=== PATIENT | male | born 1965 | race Caucasian/White ===

== ENCOUNTER → 2017-12-26 06:53 | Outpatient (CLI) | payer BC, SELFPAY ==
[2017-12-26 08:33] LABS: Add Manual Diff / Slide Review NO; Basophils Percent Auto 0.8 % (0-2); Eosinophils Percent Auto 3.3 % (2-4); Hemoglobin 15.7 g/dL (13.5-17.5); Lymphocytes Percent Auto 29.2 % (25-40); Mean Corpuscular HGB Conc 33.4 % (30-36); Mean Corpuscular Hemoglobin 30.1 PG (26-34); Mean Corpuscular Volume 90.3 fL (80-100); Monocytes Percent Auto 7.5 % (3-14); Neutrophils Absolute Auto 5100 /uL (3000-5900); Neutrophils Percent Auto 59.2 % (50-75); Platelet Count 259 X10^3/uL (150-400); Red Blood Cell Count 5.21 X10^6/uL (4.5-5.9); Red Cell Distribution Width 14.7 % (11.6-14.8); White Blood Cell Count 8.5 X10^3/uL (4.5-11.0)
[2017-12-26 09:13] LABS: Alanine Aminotransferase 58 IU/L (21-72); Albumin 4.5 g/dL (3.5-5.0); Albumin Globulin Ratio 1.7 (1.0-2.8); Alkaline Phosphatase 66 U/L (38-126); Aspartate Aminotransferase 30 IU/L (17-59); Bilirubin Total 0.5 mg/dL (0.2-1.3); Blood Urea Nitrogen 18 mg/dL (9-20); Calcium 10.6 mg/dL (8.4-10.2); Carbon Dioxide 34 mmol/L (22-32); Chloride 99 mmol/L (98-107); Cholesterol 199 mg/dL (140-199); Estimated Glomerular Filt Rate > 60.0 mL/min (>60); Globulin 2.6 g/dL (1.7-4.1); Glucose 106 mg/dL (70-100); HDL Cholesterol 38 mg/dL (40-60); HEMOLYSIS < 15 (0-50); LDL Cholesterol Calculated 108 mg/dL (<100); Potassium 5.2 mmol/L (3.4-5.1); Sodium 144 mmol/L (137-145); Total Protein 7.1 g/dL (6.3-8.2); Triglycerides 266 mg/dL (35-150)
== END ==
PROVIDERS: PCP Family Medicine; Visit Provider Registered Nurse
DX: Z00.00 Encounter for general adult medical examination without abnormal findings (principal)
CPT/HCPCS: 36415; 80053; 80061; 85025

== ENCOUNTER → 2018-01-24 12:46 | Outpatient (CLI) | payer BC, SELFPAY ==
[2018-01-24 13:41] LABS: Hemoglobin A1C% w Est Avg Glu 6.1 % (4.0-6.0)
[2018-01-24 15:47] LABS: Alanine Aminotransferase 67 IU/L (21-72); Albumin 4.5 g/dL (3.5-5.0); Albumin Globulin Ratio 1.7 (1.0-2.8); Alkaline Phosphatase 83 U/L (38-126); Aspartate Aminotransferase 37 IU/L (17-59); BUN Creatinine Ratio 17.8 (6-22); Bilirubin Total 0.9 mg/dL (0.2-1.3); Blood Urea Nitrogen 16 mg/dL (9-20); Carbon Dioxide 28 mmol/L (22-32); Chloride 102 mmol/L (98-107); Estimated Glomerular Filt Rate > 60.0 mL/min (>60); Globulin 2.7 g/dL (1.7-4.1); Glucose 98 mg/dL (70-100); HEMOLYSIS 27 (0-50); Potassium 4.6 mmol/L (3.4-5.1); Sodium 143 mmol/L (137-145); Total Protein 7.2 g/dL (6.3-8.2)
== END ==
PROVIDERS: PCP Student in an Organized Health Care Education/Training Program; Visit Provider Registered Nurse
DX: I10 Essential (primary) hypertension (principal); E66.01 Morbid (severe) obesity due to excess calories; R73.9 Hyperglycemia, unspecified
CPT/HCPCS: 36415; 80053; 83036

== ENCOUNTER 2019-08-06 20:44 | Emergency (ER) | payer BC, SELFPAY ==
[2019-08-06] VITALS (14 sets, daily range): BP systolic 120–165; BP diastolic 69–93; PULSE 70–98; RESP 12–24; TEMP 37.5; O2SAT 86–99
--- NOTE | 2019-08-06 | DI.RAD.S_ITS ---
PROCEDURE: XR WRIST RT 2V INDICATIONS: POST REDUCTION TECHNIQUE: 2 views of the wrist were acquired. COMPARISON: [facility], CR, XR WRIST RT MIN 3V, 08/06/2019, 20:46. FINDINGS: Bones: Comminuted, intra-articular fracture involving the distal radius remains medially and volarly displaced. Soft tissues: No suspicious soft tissue calcifications. IMPRESSION: Displaced comminuted, intra-articular distal radius fracture. Dictated by: Hoda Huizar MD, PhD on 08/07/2019 at 8:38 Approved by: Hoda Huizar MD, PhD on 08/07/2019 at 8:39
--- NOTE | 2019-08-06 20:51 | DI.RAD.S_ITS ---
PROCEDURE: XR WRIST RT MIN 3V INDICATIONS: fall with pain and deformity of R wrist TECHNIQUE: 4 views of the wrist were acquired. COMPARISON: None. FINDINGS: Bones: Fracture of the distal radius with intra-articular extension with volar angulation. There is mild impaction. No suspicious bony lesions. Scaphoid view: Unremarkable. Soft tissues: No suspicious soft tissue calcifications. IMPRESSION: Distal radius fracture with intra-articular extension and volar angulation. Dictated by: José Miguel Clay M.D. on 08/06/2019 at 21:06 Approved by: José Miguel Clay M.D. on 08/06/2019 at 21:08
--- NOTE | 2019-08-06 20:51 | DI.RAD.S_ITS ---
PROCEDURE: XR ELBOW RT MIN 3V INDICATIONS: pain in elbow, obvious wrist deformity TECHNIQUE: 4 views of the elbow were acquired. COMPARISON: [facility], CR, XR WRIST RT MIN 3V, 08/06/2019, 20:46. FINDINGS: Bones: No fractures identified. No dislocations. No suspicious bony lesions. Soft tissues: No elbow joint effusion. No suspicious soft tissue calcifications. IMPRESSION: No acute osseous abnormality. Dictated by: José Miguel Clay M.D. on 08/06/2019 at 21:16 Approved by: José Miguel Clay M.D. on 08/06/2019 at 21:17
[2019-08-06] MEDS: propofoL 200 MG/20 ML VIAL 110 MG IV (21:30)
[2019-08-06] MEDS: HYDROCODONE/ACET 5/325 PREPACK 1 BOTTLE MISC (21:30)
[2019-08-06] MEDS: KETAMINE 500 MG/5 ML INJ 110 MG IV (21:31)
--- NOTE | 2019-08-06 22:20 | ED.UPPEXIN ---
HPI - Extremity Injury (Upper) General Chief Complaint: Extremity Injury, Upper Stated Complaint: Injured right wrist after fall Time Seen by Provider: 08/06/19 20:48 Source: patient Mode of arrival: Ambulatory Limitations: no limitations History of Present Illness HPI narrative: 54M nonsmoker with history of HTN and hyperlipidemia presents with chief complaint of R wrist injury suffered when falling from an electric skateboard at slow speed. He was wearing full protection and denies head, neck, or back pain. He suffered injury to his right wrist and an obvious deformity. Denies any elbow or shoulder pain. He denies numbness, tingling weakness. He is right-handed. MD complaint: injury to: right Related Data Previous Rx's Medication Instructions Recorded lisinopril 20 1 tab PO DAILY #30 tab 03/06/18 mg-hydrochlorothiazide 25 mg tablet atorvastatin 40 mg tablet 40 mg PO QDAY #90 tab 01/17/19 hydrocodone-acetaminophen 1 tab PO Q4-6H PRN #20 tab 08/06/19 Allergies Allergy/AdvReac Type Severity Reaction Status Date / Time simvastatin [SIMVASTATIN] Allergy Unknown MYALGIAS Unverified 03/06/18 10:15 venom-honey bee Allergy Unknown Unverified 03/06/18 10:15 [BEE VENOM (HONEY BEE)] Review of Systems Constitutional Constitutional: Denies chills, Denies fatigue, Denies fever(s), Denies frequent falls, Denies lethargy and Denies weakness Eyes Eyes: Denies change in vision, Denies eye discharge, Denies irritation and Denies loss of vision ENT Ears, Nose, Mouth, and Throat: Denies change in voice, Denies dizziness, Denies neck pain, Denies sore throat and Denies throat swelling Cardiovascular Cardiovascular: Denies chest pain, Denies irregular heart rhythm, Denies lightheadedness, Denies palpitations, Denies dyspnea, Denies dyspnea on exertion and Denies orthopnea Respiratory Respiratory: Denies cough, Denies dyspnea, Denies dyspnea on exertion and Denies wheezing Gastrointestinal Gastrointestinal: Denies abdominal pain, Denies change in bowel habits, Denies diarrhea, Denies nausea and Denies vomiting Genitourinary Genitourinary: Denies hematuria, Denies flank pain, Denies urinary incontinence and Denies urinary urgency Musculoskeletal Musculoskeletal: Denies back pain, Reports joint swelling, Reports limited range of motion, Denies muscle weakness, Denies neck pain, Denies numbness and Denies tingling Integumentary/Breasts Skin/Breast: Denies pruritus, Denies erythema, Denies rash and Denies wounds Neurologic Neurologic: Denies behavioral changes, Denies confusion, Denies dizziness, Denies frequent falls, Denies loss of vision, Denies numbness, Denies tingling and Denies weakness Psychiatric Psychiatric: Denies anxiety, Denies behavioral changes, Denies confusion, Denies depression, Denies homicidal ideation and Denies suicidal ideation Endocrine Endocrine: Denies fatigue, Denies flushing and Denies palpitations Hematologic/Lymphatic Hematologic/Lymphatic: Denies easy bruising Allergic/Immunologic Allergic/Immunologic: Denies urticaria, Denies throat swelling and Denies wheezing Patient History Medical History Chicken pox (Resolved) Diverticulitis (Chronic 2010) Hyperlipidemia (Chronic) Hypertension (Chronic 2015) Surgical History Anesthesia (Resolved) History of colonoscopy (Resolved 2010) History of umbilical hernia repair (Resolved) Family History Brother Age: 48 High cholesterol Grandfather Heart disease Mother Age: 70 Hypertension Brother No problems noted. Brother No problems noted. Father No problems noted. Grandmother COPD (chronic obstructive pulmonary disease) Grandfather No problems noted. Grandmother No problems noted. Sister No problems noted. Social History Smoking Status: Never smoker Smoking Status: Never smoker Exam Narrative Exam Narrative: GENERAL: [54] year old patient appears stated age. Well-nourished, well-developed patient, in mild distress. HEAD: Atraumatic. Normocephalic. EYES: Pupils equal round and reactive. Extraocular motions intact. No scleral icterus. No injection or drainage. ENT: Nose without bleeding, purulent drainage. Throat without erythema, tonsillar hypertrophy or exudate. Airway patent. NECK: Trachea midline. Non tender CARDIOVASCULAR: Regular rate and rhythm without murmurs, gallops, or rubs. RESPIRATORY: Clear to auscultation. Breath sounds equal bilaterally. No wheezes, rales, or rhonchi. GASTROINTESTINAL: Abdomen soft, non-tender, nondistended. EXTREMITIES: Obvious deformity to right wrist. Closed, isolated neurovascular intact. No tenderness to palpation of elbow or shoulder. No edema or joint tenderness. BACK: Nontender without deformity or crepitance. No flank tenderness. NEURO: AOx3. SKIN: No rash or erythema of visible areas Initial Vital Signs Initial Vital Signs: Vital Signs Temperature 99.5 F 08/06/19 20:51 Pulse Rate 97 H 08/06/19 20:51 Respiratory Rate 08/06/19 20:51 Blood Pressure 145/93 H 08/06/19 20:51 Pulse Oximetry 99 08/06/19 20:51 Procedures Orthopedic Fracture Reduction Fracture #1: Time Out Performed: Yes Side: right Fracture Reduction Location: radius Analgesia: procedural sedation Technique: direct manipulation and traction/counter-traction Post Reduction X-rays Demonstrate: acceptable reduction Post-reduction neuro exam: intact Post-reduction vascular exam: intact Splint Applied: Yes Patient Tolerated Procedure: Well Procedural Sedation Consent signed: Yes Time out performed: Yes Indication: fracture/dislocation reduction ASA Class: II Mallampati Airway Classification: Class II Preparation: cardiac technologist applied, pulse oximeter, capnometry used, supplemental O2 applied, suction/airway equipment at bedside and IV secured Ketamine: IV Ketamine dose (mg): 110 IV Propofol dose (mg): 30 ED Sedation Level: Moderate (Concious) Patient Tolerated Procedure: Well Complications: hypoxia Interventions: Airway repositioned Course Orders Ordered: ED Orders 08/06/19 20:51 XR elbow RT min 3V Stat XR wrist RT min 3V Stat Discontinued Medications Hydrocodone Bitart/Acetaminophen (Vicodin 5/325 Prepack) 1 bottle MISC SEEINSTR ONE Stop: 08/06/19 20:53 Last Admin: 08/06/19 21:30 Dose: 1 bottle Documented by: JOSE GUADALUPE Ketamine HCl (Ketalar) 110 mg 1 mg/kg (110 mg) IV NOW ONE Stop: 08/06/19 21:00 Last Admin: 08/06/19 21:31 Dose: 110 mg Documented by: JOSE GUADALUPE Propofol (Diprivan) 110 mg 1 mg/kg (110 mg) IV NOW ONE Stop: 08/06/19 20:59 Last Admin: 08/06/19 21:30 Dose: 30 mg Documented by: JOSE GUADALUPE Hooper Consultation #1: discussion with Dr. Ayala, in agreement with the plan to reduce, splint and follow up. Vital Signs Vital signs: Vital Signs - 8 hr 08/06/19 20:51 08/06/19 21:26 08/06/19 22:00 Temperature 99.5 F Pulse Rate 97 H 70 98 H Respiratory Rate 20 12 12 Blood Pressure 145/93 H Blood Pressure [Left Arm] 125/69 120/71 Pulse Oximetry 99 94 86 L 08/06/19 22:05 08/06/19 22:10 08/06/19 22:15 Temperature Pulse Rate 91 H 87 91 H Respiratory Rate 19 21 22 Blood Pressure Blood Pressure [Left Arm] 154/88 H 165/91 H 144/82 H Pulse Oximetry 96 95 96 08/06/19 22:20 08/06/19 22:25 08/06/19 22:30 Temperature Pulse Rate 76 81 71 Respiratory Rate 18 17 21 Blood Pressure Blood Pressure [Left Arm] 152/85 H 152/85 H 149/83 H Pulse Oximetry 96 94 94 08/06/19 22:35 08/06/19 22:40 08/06/19 22:41 Temperature Pulse Rate 71 73 70 Respiratory Rate 20 19 18 Blood Pressure Blood Pressure [Left Arm] 125/73 126/75 126/75 Pulse Oximetry 92 94 94 08/06/19 23:08 08/06/19 23:11 Temperature Pulse Rate 70 70 Respiratory Rate 18 18 Blood Pressure 132/79 Blood Pressure [Left Arm] 132/79 Pulse Oximetry 95 95 MDM - Extremity Injury (Upper) Imaging Data Extremity x-ray #1: Attestation: I personally reviewed and interpreted this imaging study as follows: My Impression: distal radius fracture Radiologist's Impression: [address] [address] XRay Report Signed Patient: Bora Silverio [facility]#: [id number] : 1965Acct:[id number] Age/Sex: 54 / MDate of Service: 08/06/19 Loc: ED Accession Number: [id number] Procedure: XR wrist RT min 3V Ordering Provider: Joshua Dale D.O. PROCEDURE: XR WRIST RT MIN 3V INDICATIONS: fall with pain and deformity of R wrist TECHNIQUE: 4 views of the wrist were acquired. COMPARISON: None. FINDINGS: Bones: Fracture of the distal radius with intra-articular extension with volar angulation. There is mild impaction. No suspicious bony lesions. Scaphoid view: Unremarkable. Soft tissues: No suspicious soft tissue calcifications. IMPRESSION: Distal radius fracture with intra-articular extension and volar angulation. Dictated by: José Miguel Clay M.D. on 08/06/2019 at 21:06 Approved by: José Miguel Clay M.D. on 08/06/2019 at 21:08 Discharge Plan Departure Patient Disposition: Home Clinical Impression: Distal radius fracture Qualifiers: Encounter type: initial encounter Fracture type: closed Fracture morphology: Colles' Laterality: right Qualified Code(s): S52.531A - Colles' fracture of right radius, initial encounter for closed fracture Discharge Date/Time: 08/06/19 23:20 Instructions: DI for Distal Radius Fracture Activity Restrictions/Additional Instructions: *You have been diagnosed with [distal radius fracture with volar angulation] *What to do: *Take medications as directed *Follow up with [facility], call tomorrow morning for an appointment. Let them know you were seen in the Emergency Department and that we ask that you be seen in follow up *Return to ER if you should have any new, worsening or concerning symptoms Prescriptions: New hydrocodone-acetaminophen 5-325 mg tablet 1 tab PO Q4-6H PRN (Reason: pain) Qty: 20 RF: 0 No Action atorvastatin [Lipitor] 40 mg tablet 40 mg PO QDAY Qty: 90 RF: 1 lisinopril-hydrochlorothiazide 20-25 mg tablet 1 tab PO DAILY Qty: 30 RF: 5 Referrals: Hemant Soto MD [Primary Care Provider] - Kaushik Ayala MD [Physician] -
--- NOTE | 2019-08-06 22:37 | PC.NURSE ---
patient tolerated sedation well. He is alert and oriented and his vitals are stable.
--- NOTE | 2019-08-25 07:24 | PC.NURSE ---
Procedural sedation stop time was at 2231. A note has been made to reflect the correct time.
--- NOTE | 2019-08-25 08:07 | PC.NURSE ---
Late entry: The procedural sedation stop time ended at 2231.
== END 2019-08-06 23:20 | disposition home or self-care (01) ==
PROVIDERS: Emergency Provider Emergency Medicine; PCP Student in an Organized Health Care Education/Training Program
DX: S52.531A Colles' fracture of right radius, initial encounter for closed fracture (principal); V00.131A Fall from skateboard, initial encounter
CPT/HCPCS: 25605; 29105; 29125; 73080; 73100; 73110; 94770; 99152; 99153; 99285; 99291; J2704

== ENCOUNTER → 2019-08-07 15:25 | Outpatient (CLI) | payer BC, SELFPAY ==
--- NOTE | 2019-08-07 15:27 | DI.CT.S_ITS ---
PROCEDURE: CT UE RT WO CON INDICATIONS: OTHER FRACTURES OF LOWER END OF RIGHT RADIUS TECHNIQUE: Noncontrast 1 mm axial sections acquired through the carpal bones, with coronal and sagittal reformats. COMPARISON: [facility], CR, XR WRIST RT 2V, 08/06/2019, 22:09. FINDINGS: Image quality: Excellent. Bones: Distal ulna shows articular margin subchondral cyst. The distal radius shows a complex comminuted impacted and displaced set of fracture planes predominantly involving the distal articular surface with significant displacement of the fracture fragments both medially, laterally and dorsally. A carpal fracture is not found. No hematoma is identified. Soft tissues: No ligamentous injury is suspected. IMPRESSION: Impacted, comminuted, significantly displaced complex distal radius fracture as discussed, without associated malalignment that would suggest ligamentous disruption, and also without hematoma along the margins of the area of trauma. Dictated by: Teddy Morgan M.D. on 08/07/2019 at 16:53 Approved by: Teddy Morgan M.D. on 08/07/2019 at 16:56
== END ==
PROVIDERS: PCP Student in an Organized Health Care Education/Training Program; Referring Provider Orthopaedic Surgery; Visit Provider Orthopaedic Surgery
DX: S52.591A Other fractures of lower end of right radius, initial encounter for closed fracture (principal); X58.XXXA Exposure to other specified factors, initial encounter
CPT/HCPCS: 73200

== ENCOUNTER → 2019-09-02 08:47 | Outpatient (CLI) | payer BC, SELFPAY ==
[2019-09-02 11:51] LABS: BUN Creatinine Ratio 20.8 (6-22); Blood Urea Nitrogen 15 mg/dL (9-20); Calcium 9.3 mg/dL (8.4-10.2); Carbon Dioxide 32 mmol/L (22-32); Chloride 101 mmol/L (98-107); Cholesterol 183 mg/dL (140-199); Estimated Glomerular Filt Rate > 60.0 mL/min (>60); Glucose 97 mg/dL (70-100); HDL Cholesterol 40 mg/dL (40-60); HEMOLYSIS < 15 (0-50); LDL Cholesterol Calculated 103 mg/dL (<100); Sodium 137 mmol/L (137-145); Triglycerides 200 mg/dL (35-150)
== END ==
PROVIDERS: PCP Student in an Organized Health Care Education/Training Program; Referring Provider Student in an Organized Health Care Education/Training Program; Visit Provider Student in an Organized Health Care Education/Training Program
DX: E78.2 Mixed hyperlipidemia (principal); I10 Essential (primary) hypertension
CPT/HCPCS: 36415; 80048; 80061

== ENCOUNTER 2020-06-04 10:14 | Emergency (ER) | payer BC, SELFPAY ==
[2020-06-04] VITALS (12 sets, daily range): BP systolic 145–202; BP diastolic 89–113; PULSE 67–94; RESP 14–19; TEMP 36.4; O2SAT 94–98; BMI 35.9
--- NOTE | 2020-06-04 10:19 | DI.RAD.S_ITS ---
PROCEDURE: XR CHEST 1V INDICATIONS: Chest pain TECHNIQUE: One view of the chest was acquired. COMPARISON: None. FINDINGS: Surgical changes and devices: None. Lungs and pleura: Lungs are clear. No pleural effusions or pneumothorax. Mediastinum: Mediastinal contours appear normal. Heart size is normal. Bones and chest wall: No suspicious bony lesions. Overlying soft tissues appear unremarkable. IMPRESSION: No acute cardiopulmonary process demonstrated radiographically. Dictated by: Ismael Dockery M.D. on 06/04/2020 at 10:35 Approved by: Ismael Dockery M.D. on 06/04/2020 at 10:36
[2020-06-04 10:31] LABS: Add Manual Diff / Slide Review NO; Basophils Absolute Auto 100 /uL (0-100); Basophils Percent Auto 1.1 % (0-2); Eosinophils Absolute Auto 300 /uL (0-450); Hematocrit 47.9 % (41-53); Hemoglobin 16.2 g/dL (13.5-17.5); Lymphocytes Absolute Auto 2300 /uL (1100-4500); Lymphocytes Percent Auto 24.5 % (25-40); Mean Corpuscular HGB Conc 33.8 % (30-36); Mean Corpuscular Hemoglobin 30.4 PG (26-34); Mean Corpuscular Volume 89.9 fL (80-100); Monocytes Absolute Auto 600 /uL (0-900); Monocytes Percent Auto 6.9 % (3-14); Neutrophils Absolute Auto 5900 /uL (1500-7000); Neutrophils Percent Auto 64.5 % (50-75); Platelet Count 222 X10^3/uL (150-400); Red Blood Cell Count 5.33 X10^6/uL (4.5-5.9); Red Cell Distribution Width 14.1 % (11.6-14.8); White Blood Cell Count 9.2 X10^3/uL (4.5-11.0)
[2020-06-04 10:40] LABS: PTT Partial Thromboplastin Tim 33 SECONDS (26.4-36.2)
[2020-06-04 10:42] LABS: Alanine Aminotransferase 48 IU/L (<50); Albumin 4.4 g/dL (3.5-5.0); Albumin Globulin Ratio 1.4 (1.0-2.8); Alkaline Phosphatase 81 U/L (38-126); Aspartate Aminotransferase 34 IU/L (17-59); BUN Creatinine Ratio 16.9 (6-22); Bilirubin Total 0.5 mg/dL (0.2-1.3); Blood Urea Nitrogen 14 mg/dL (9-20); Calcium 9.1 mg/dL (8.4-10.2); Carbon Dioxide 30 mmol/L (22-32); Chloride 103 mmol/L (98-107); Creatine Kinase 94 U/L (55-170); Estimated Glomerular Filt Rate > 60.0 mL/min (>60); Globulin 3.1 g/dL (1.7-4.1); Glucose 113 mg/dL (70-100); HEMOLYSIS 19 (0-50); Lipase 58 U/L (23-300); Magnesium 2.2 mg/dL (1.6-2.3); Potassium 4.3 mmol/L (3.4-5.1); Sodium 140 mmol/L (137-145); Total Protein 7.5 g/dL (6.3-8.2)
[2020-06-04 10:54] LABS: Troponin I < 0.012 ng/mL (0.01-0.034)
--- NOTE | 2020-06-04 13:16 | ED.GENADULT ---
HPI - General Adult General Chief complaint: Hypertension Stated complaint: Sent over from his Drs. High blood pressure Time Seen by Provider: 06/04/20 12:32 Source: patient Mode of arrival: Ambulatory Limitations: no limitations History of Present Illness HPI narrative: This is a 54-year-old male comes emergency department for elevated blood pressure. Patient states he had noted he has had some headaches last week and today. He checked his blood pressure last night was 176/109 and this morning was 164/106. Patient states mild headache. He denies any other symptoms. No vision changes, no difficulty with speech. No chest pain, no pressure, no shortness of breath. No abdominal pain. No numbness, tingling or weakness. He has not had any GI or urinary symptoms. He has not had any syncope. Patient states he takes lisinopril 20 mg daily as well as atorvastatin 40 mg daily. He was taking higher doses of medication but they were altered after he began a plant based, whole foods diet and his hypertension improved. He states that he stopped that about 4 months ago and also had eaten several processed foods and salty foods this week which he does not normally eat. He has also just finished strength night shifts, his daughter is getting this Sunday and on Sunday he is flying to [place] to move his mother. Patient states he has been taking his medications otherwise. Patient's primary care is Dr. Soto. Related Data Previous Rx's Medication Instructions Recorded hydrocodone-acetaminophen 1 tab PO Q4-6H PRN #20 tab 08/06/19 atorvastatin 40 mg tablet 40 mg PO BEDTIME #90 tab 09/04/19 lisinopril 20 mg tablet 20 mg PO DAILY #90 tab 03/16/20 metoprolol tartrate 12.5 mg PO BID PRN #20 tab 06/04/20 Allergies Allergy/AdvReac Type Severity Reaction Status Date / Time simvastatin [SIMVASTATIN] Allergy Unknown MYALGIAS Unverified 09/04/19 16:35 venom-honey bee Allergy Unknown Unverified 09/04/19 16:35 [BEE VENOM (HONEY BEE)] Review of Systems Review of Systems ROS Unobtainable: All systems reviewed & are unremarkable except as noted in HPI and below Patient History Medical History (Updated 06/04/20 @ 13:31 by Luci Garcia DO) Chicken pox Diverticulitis (2010) Hyperlipidemia Hypertension (2016) Surgical History Anesthesia History of colonoscopy (2010) History of umbilical hernia repair Family History Brother Age: 48 High cholesterol Grandfather Heart disease Mother Age: 70 Hypertension Brother No problems noted. Brother No problems noted. Father No problems noted. Grandmother COPD (chronic obstructive pulmonary disease) Grandfather No problems noted. Grandmother No problems noted. Sister No problems noted. Social History Smoking Status: Never smoker Smoking Status: Never smoker Exam Narrative Exam Narrative: GENERAL: Alert and oriented x three, obese male in mild distress. HEENT: Head normocephalic, atraumatic, EOMI, pupils reactive, face symmetric, moist mucous membranes NECK: Supple, full range of motion CARDIOVASCULAR: Regular rate and rhythm without murmurs, rubs or gallops. RESPIRATORY: Breath sounds equal bilaterally, no wheezes rales or rhonchi. ABDOMEN: Soft, nontender. Normoactive bowel sounds all 4 quadrants. No guarding or rebound, rigidity, no mass. No bruit or pulsatile mass. : No CVA tenderness EXTREMITIES: Normal range of motion, no clubbing or edema. Neurovascularly intact. 2+ pulses in all 4 extremities. NEUROLOGICAL: Cranial nerves II through XII grossly intact. Moving all extremities SKIN: Warm, dry, no petechiae, no rashes or lesions. Initial Vital Signs Initial Vital Signs: Vital Signs Pulse Rate 94 H 06/04/20 10:18 Pulse Oximetry 95 06/04/20 10:18 Course Orders Ordered: ED Orders 06/04/20 10:19 XR chest 1V Stat EKG-12 Lead Stat 06/04/20 10:25 Complete Blood Count AUTO DIFF Stat Comprehensive Metabolic Panel Stat Lipase Stat Magnesium Stat Partial Thromboplastin Time Stat Prothrombin Time INR Stat Troponin & CK Cardiac Panel Stat Vital Signs Vital signs: Vital Signs - 8 hr 06/04/20 11:00 06/04/20 11:30 06/04/20 11:51 Pulse Rate 67 74 67 Respiratory Rate 14 Blood Pressure 154/89 H Pulse Oximetry 94 95 95 06/04/20 12:00 06/04/20 12:30 06/04/20 13:00 Pulse Rate 68 71 67 Respiratory Rate 14 15 15 Blood Pressure 148/90 H 145/89 H 153/95 H Pulse Oximetry 94 96 96 06/04/20 13:30 Pulse Rate 70 Respiratory Rate 16 Blood Pressure 155/95 H Pulse Oximetry 95 Medical Decision Making Lab Data Lab results reviewed: Yes I reviewed the patient's lab results. Result diagrams: 06/04/20 10:25 06/04/20 10:25 Labs: Lab Results 06/04/20 06/04/20 06/04/20 Range/Units 10:25 10:25 10:25 WBC 9.2 (4.5-11.0) X10^3/uL RBC 5.33 (4.5-5.9) X10^6/uL Hgb 16.2 (13.5-17.5) g/dL Hct 47.9 (41-53) % MCV 89.9 (80-100) fL MCH 30.4 (26-34) PG MCHC 33.8 (30-36) % RDW 14.1 (11.6-14.8) % Plt Count 222 (150-400) X10^3/uL Neut % (Auto) 64.5 (50-75) % Lymph % (Auto) 24.5 L (25-40) % [place] % (Auto) 6.9 (3-14) % Eos % (Auto) 3.0 (2-4) % Baso % (Auto) 1.1 (0-2) % Neut # (Auto) 5900 (8512-0377) /uL Lymph # (Auto) 2300 (5433-2163) /uL [place] # (Auto) 600 (0-900) /uL Eos # (Auto) 300 (0-450) /uL Baso # (Auto) 100 (0-100) /uL PT 11.0 (10.1-12.7) SECONDS INR 1.0 (0.9-1.3) APTT 33 (26.4-36.2) SECONDS Sodium 140 (137-145) mmol/L Potassium 4.3 (3.4-5.1) mmol/L Chloride 103 (98-107) mmol/L Carbon Dioxide 30 (22-32) mmol/L BUN 14 (9-20) mg/dL Creatinine 0.83 (0.66-1.25) mg/dL Estimated GFR > 60.0 (>60) mL/min BUN/Creatinine Ratio 16.9 (6-22) Glucose 113 H (70-100) mg/dL Calcium 9.1 (8.4-10.2) mg/dL Magnesium 2.2 (1.6-2.3) mg/dL Total Bilirubin 0.5 (0.2-1.3) mg/dL AST 34 (17-59) IU/L ALT 48 (<50) IU/L Alkaline Phosphatase 81 (38-126) U/L Total Creatine Kinase 94 (55-170) U/L CK-MB (CK-2) TNP CK-MB (CK-2) Rel Index TNP Troponin I < 0.012 (0.01-0.034) ng/mL Total Protein 7.5 (6.3-8.2) g/dL Albumin 4.4 (3.5-5.0) g/dL Globulin 3.1 (1.7-4.1) g/dL Albumin/Globulin Ratio 1.4 (1.0-2.8) Lipase 58 (23-300) U/L Imaging Data Chest x-ray: Radiologist's Impression: Bora Silverio 54 M [address] [address]NQqo ReportSigned Patient: Bora Silverio [facility]#: [id number]: 1965Acct:[id number]/Sex: 54 / MDate of Service: 06/04/20Loc: EDAccession Number: [id number] Procedure: XR chest 1V Ordering Provider: Luci Garcia D.O. PROCEDURE: XR CHEST 1V INDICATIONS: Chest pain TECHNIQUE: One view of the chest was acquired. COMPARISON: None. FINDINGS: Surgical changes and devices: None. Lungs and pleura: Lungs are clear. No pleural effusions or pneumothorax. Mediastinum: Mediastinal contours appear normal. Heart size is normal. Bones and chest wall: No suspicious bony lesions. Overlying soft tissues appear unremarkable. IMPRESSION: No acute cardiopulmonary process demonstrated radiographically. Dictated by: Ismael Dockery M.D. on 06/04/2020 at 10:35 Approved by: Ismael Dockery M.D. on 06/04/2020 at 10:36 ECG Data Attestation: I personally reviewed and interpreted this ECG as follows: Interpretation: Sinus rhythm rate of 73 [place] 162 QRS of 94 and QTC of 447. No acute ST elevation or depression appreciated. MDM Narrative Medical decision making narrative: This is a 54-year-old male comes to the emergency department with significant hypertension initially in department which improved to the 150/95 range without any intervention. Patient describes some mild headache but denies any other symptoms. EKG, CXR and lab work did not show any acute end organ injury. Patient did have his medications decreased after having changed to a plant based whole food diet and then stopped his dietary changes stop checking his blood pressure regularly since. He has had some mild headaches. Patient also states that he has finished a string of night shifts, his daughters being on and he is flying Sunday to [place] to help move his mother. Discussed with patient I would like to give him a prescription for short course of metoprolol if he continues to be quite elevated to take this medication. He has a blood pressure cuff at home he can check regularly. Also encouraged him to reach out his primary care finding times with his medications. We also discussed that even if he has any new changes or concerning signs or symptoms to return to the emergency department. Discharge Plan Departure Patient Disposition: Home Clinical Impression: Hypertension Instructions: DI for High Blood Pressure Activity Restrictions/Additional Instructions: Follow-up with your physician for recheck. Call for an appointment. Your blood pressure has improved here in the department but if it is persistently elevated at home I would recommend taking a dose of metoprolol once daily. Discuss this medication with your physician to see if you should continue it or change or other medications. Prescription was sent to [facility] in [place]. Please return for fevers, severe headaches, lightheadedness, passing out, new chest pain, abdominal or back pain, persistent vomiting, new swelling in your extremities or other new or concerning symptoms. Prescriptions: New metoprolol tartrate 25 mg tablet 12.5 mg PO BID PRN (Reason: hypertension) Qty: 20 RF: 0 No Action lisinopril 20 mg tablet 20 mg PO DAILY Qty: 90 RF: 1 atorvastatin 40 mg tablet 40 mg PO BEDTIME Qty: 90 RF: 3 hydrocodone-acetaminophen 5-325 mg tablet 1 tab PO Q4-6H PRN (Reason: pain) Qty: 20 RF: 0 Referrals: Hemant Soto MD [Primary Care Provider] -
== END 2020-06-04 13:50 | disposition home or self-care (01) ==
PROVIDERS: Emergency Provider Emergency Medicine; PCP Student in an Organized Health Care Education/Training Program
DX: I10 Essential (primary) hypertension (principal)
CPT/HCPCS: 36415; 71045; 80053; 82550; 83690; 83735; 84484; 85025; 85610; 85730; 93005; 93010; 99284

== ENCOUNTER → 2022-04-10 10:12 | Outpatient (CLI) | payer BC, SELFPAY ==
[2022-04-10 11:07] LABS: Hemoglobin A1C% w Est Avg Glu 6.1 % (4.0-6.0)
[2022-04-10 11:20] LABS: BUN Creatinine Ratio 19.2 (6-22); Blood Urea Nitrogen 15 mg/dL (9-20); Calcium 8.7 mg/dL (8.4-10.2); Carbon Dioxide 35 mmol/L (22-32); Chloride 99 mmol/L (98-107); Cholesterol 197 mg/dL (140-199); Estimated Glomerular Filt Rate > 60 mL/min (>60); Glucose 104 mg/dL (70-100); HDL Cholesterol 37 mg/dL (40-60); HEMOLYSIS < 15 (0-50); LDL Cholesterol Calculated 113 mg/dL (<100); Potassium 4.5 mmol/L (3.4-5.1); Sodium 137 mmol/L (137-145); Triglycerides 233 mg/dL (35-150)
[2022-04-10 11:49] LABS: Prostate Specific Antigen Scrn 0.962 ng/mL (0.1-4.0)
[2022-04-10 17:19] LABS: Hep C Virus Ab w/Reflex Quant NEGATIVE s/c (NEGATIVE)
== END ==
PROVIDERS: PCP Student in an Organized Health Care Education/Training Program; Referring Provider Student in an Organized Health Care Education/Training Program; Visit Provider Student in an Organized Health Care Education/Training Program
DX: Z12.5 Encounter for screening for malignant neoplasm of prostate (principal); R73.03 Prediabetes; E78.5 Hyperlipidemia, unspecified; Z11.59 Encounter for screening for other viral diseases; I10 Essential (primary) hypertension
CPT/HCPCS: 36415; 80048; 80061; 83036; 86803; G0103

== ENCOUNTER 2023-06-21 07:58 | Day surgery (SDC) | payer BC, SELFPAY ==
--- NOTE | 2023-06-21 | PATH_ITS ---
[facility] Accession Number: [id number] No. of containers..03 Tissue . 01 Material submitted: . PART A: colon - CECAL POLYP PART B: colon - ASCENDING POLYPS PART C: colon - SIGMOID POLYP . 01 Diagnosis: Part A: CECAL POLYP: Sessile serrated adenoma. . Part B: ASCENDING POLYPS: Sessile serrated adenoma. Tubular adenoma. . Part C: SIGMOID POLYP: Colonic mucosa with focal mucosal hyperplasia. No neoplasm identified. . Specimen Comments: This could represent the early development of a hyperplastic polyp. No dysplasia is seen. [facility] 06/27/2023 1343 Local . 01 Electronically signed: . Faisal Estrada MD, Pathologist NPI- [id number] . 01 Gross description: . Part A: CECAL POLYP: Received in formalin is 1 fragment(s) of baker, soft tissue measuring 0.6 x 0.5 x 0.5 cm submitted entirely in 1 cassette(s) . Part B: ASCENDING POLYPS: Received in formalin are 3 fragment(s) of baker, soft tissue measuring 0.4 x 0.4 x 0.2 cm to 0.6 x 0.3 x 0.3 cm submitted entirely in 1 cassette(s) . Part C: SIGMOID POLYP: Received in formalin is 1 fragment(s) of baker, soft tissue measuring 0.5 x 0.3 x 0.3 cm submitted entirely in 1 cassette(s) /[facility] 06/27/2023 1343 Local . 01 Pathologist provided ICD-10: D12.0, D12.2, K63.5 . 01 CPT . 344192, 687889, 938502 Specimen Comment: A courtesy copy of this report has been sent to [phone] Performed at: 01 [facility] Cytology [address] [facility], [place], [place] [id number] MD Faisal Estrada MD Phone: [phone]
[2023-06-21 08:24] VITALS: BP 164/95; PULSE 49; RESP 18; TEMP 36.1; O2SAT 96
--- NOTE | 2023-06-21 08:31 | PM.HP.1 ---
History of Present Illness History of Present Illness Date Patient Seen: 06/21/23 Time Patient Seen: 08:31 Chief complaint: Colonoscopy Narrative: Bora is a 58 year old man who presents for a screening colonoscopy. He last had one in 2010. No known family history of colon cancer. No bowel complaints. [facility] Medical History (Updated 06/21/23 @ 08:32 by Jose Verde MD) Pre-diabetes Hyperlipidemia Morbid obesity Diverticulitis (2010) Chicken pox Essential hypertension (09/01/15) Surgical History History of umbilical hernia repair Anesthesia History of colonoscopy (2010) Family History Brother Age: 51 High cholesterol Grandfather Heart disease Mother Age: 73 Hypertension Brother No problems noted. Brother No problems noted. Father No problems noted. Grandmother COPD (chronic obstructive pulmonary disease) Grandfather No problems noted. Grandmother No problems noted. Sister No problems noted. Social History Smoking Status: Never smoker alcohol intake: current Meds Home Medications and Allergies Home Medications Medication Instructions Recorded Confirmed Type atorvastatin 40 mg tablet 40 mg PO BEDTIME #90 tabs 04/10/22 06/21/23 Rx lisinopril 20 mg tablet 20 mg PO BID #180 tabs 06/14/23 06/21/23 Rx metoprolol tartrate 100 mg tablet 100 mg PO BID #180 tabs 06/14/23 06/21/23 Rx Allergies Allergy/AdvReac Type Severity Reaction Status Date / Time simvastatin [SIMVASTATIN] Allergy Unknown MYALGIAS Verified 06/21/23 08:32 venom-honey bee Allergy Unknown Verified 06/21/23 08:32 [BEE VENOM (HONEY BEE)] Exam Vital Signs (past 8 hours): - 06/21/23 08:24 Temperature 96.9 F L Pulse Rate 49 L Respiratory Rate 18 Blood Pressure 164/95 H Pulse Oximetry 96 Oxygen Delivery Method Room Air Oxygen Delivery Method Room Air Const General: No acute distress Resp Effort & Inspection: normal respiratory effort Assessment & Plan Assessment and plan (1) Colon cancer screening: Status: Acute Plan We reviewed the risks and benefits of colonoscopy for colon cancer screening and he would like to proceed.
[2023-06-21] MEDS: LACTATED RINGERS 1,000 ML 42 ML IV (08:32)
--- NOTE | 2023-06-21 09:31 | PM.OP.COLON ---
Operative Date/Time/Diagnoses Date of procedure: 06/21/23 Time of procedure: 09:31 Pre-op diagnosis: Colon cancer screening Post-op diagnosis: same Procedure & Clinicians Study performed: Colonoscopy Surgeon: Jose Verde Procedure Notes Procedure in detail: Surgeon: Jose Verde MD Anesthesia: Althea Lentz D.O. Procedure: The patient was brought to the endoscopy suite, placed in left lateral decubitus position. The patient was connected to monitoring devices. A time-out was performed. Sedation was administered. Once the patient was adequately sedated, a digital rectal exam was performed and was normal. The scope was then inserted and advanced to the cecum where the appendiceal orifice was identified and photographed. The scope was then slowly withdrawn over greater than 6 minutes. The mucosa was thoroughly inspected. There was a 6 mm polyp in the cecum removed with a cold snare. There were 3 polyps in the ascending colon, each about 5 mm and each removed with cold snare and sent together. There was a 4 mm polyp sigmoid colon removed with a cold snare. There was rather extensive sigmoid diverticulosis. The scope was retroflexed in the rectum. No other abnormalities were seen. The scope was straightened and removed. The patient was awakened and brought to recovery. Scope withdrawal time: 17 minutes Sedation time: 19 minutes EBL: 5 mL Findings: Multiple subcentimeter polyps as outlined above and sigmoid diverticulosis Post-procedure Disposition: PACU
[2023-06-21 09:36] VITALS: BP 120/75; PULSE 64; RESP 11; TEMP 36.7; O2SAT 95
[2023-06-21 09:40] VITALS: BP 128/84; PULSE 59; RESP 13; TEMP 36.7; O2SAT 98
[2023-06-21 09:44] VITALS: BP 124/83; PULSE 51; RESP 16; TEMP 36.6; O2SAT 99
== END 2023-06-21 09:58 | disposition home or self-care (01) ==
PROVIDERS: PCP Registered Nurse; Referring Provider Surgery; Visit Provider Surgery
PROC: 0DJD8ZZ Inspection of Lower Intestinal Tract, Via Natural or Artificial Opening Endoscopic (ICD-10-PCS; CPT 45378; principal; 2023-06-21 08:45)
DX: Z12.11 Encounter for screening for malignant neoplasm of colon (principal); K57.30 Diverticulosis of large intestine without perforation or abscess without bleeding; D12.0 Benign neoplasm of cecum; D12.2 Benign neoplasm of ascending colon; K63.5 Polyp of colon
CPT/HCPCS: 45385; J2704